=== PATIENT | female | born 1985 | race Caucasian/White ===

== ENCOUNTER 2017-04-12 09:45 | Inpatient (IN) | payer MEDICAID ==
[~2017-04-12] VITALS: Ht 157.5 cm; Wt 61.7 kg
[~2017-04-12 09:45] MED LIST: CLIN-79 PO; CYCL-1 PO; HYDR-569 PO; MESA400C3 PO; METO-292 PO; ONDA4TAB12 PO; ONDA8TAB9 PO
[2017-04-12 10:38] LABS: URINE HCG NEGATIVE (NEG)
[2017-04-12 10:50] LABS: BASOPHILS # (AUTO) 0.1 X10'3 (0-0.2); BASOPHILS % (AUTO) 2.1 % (0-1); EOSINOPHILS # (AUTO) 0.1 X10'3 (0-0.9); EOSINOPHILS % (AUTO) 1.2 % (0-6); HEMATOCRIT 42.8 % (35.0-45.0); LYMPHOCYTES # (AUTO) 2.1 X10'3 (1.1-4.8); LYMPHOCYTES % (AUTO) 34.2 % (21-51); MEAN CORPUSCULAR HEMOGLOBIN 30.3 PG (27.0-31.0); MEAN CORPUSCULAR HGB CONC 32.6 % (33.0-36.5); MEAN CORPUSCULAR VOLUME 92.9 FL (78-98); MEAN PLATELET VOLUME 9.5 FL (7.4-10.4); MONOCYTES # (AUTO) 0.4 X10'3 (0-0.9); MONOCYTES % (AUTO) 7.1 % (2-12); NEUTROPHILS # (AUTO) 3.5 X10'3 (1.8-7.7); NEUTROPHILS % (AUTO) 55.4 % (42-75); PLATELET COUNT 264 X10'3 (140-440); RED BLOOD COUNT 4.61 X10'6 (4.20-5.60); WHITE BLOOD COUNT 6.3 X10'3 (4.5-11.0)
[2017-04-12 10:57] LABS: CLARITY,URINE CLEAR (Clear); COLOR,URINE AMBER (Yellow); GLUCOSE, URINE NEGATIVE (Neg); KETONES,URINE NEGATIVE (Neg); LEUKOCYTE ESTERASE ,URINE NEGATIVE (Neg); NITRITES, URINE NEGATIVE (Neg); OCCULT BLOOD,URINE NEGATIVE (Neg); PROTEIN,URINE NEGATIVE (Neg); UROBILINOGEN,URINE 0.2 E.U/dL (0.2-1.0)
[2017-04-12 11:00] LABS: INR 1.2 INR; PROTHROMBIN TIME 12.2 SECONDS (9.0-12.0)
[2017-04-12 11:02] LABS: UA COLLECTION TYPE CLN CATCH MIDSTREAM
[2017-04-12 11:05] LABS: URINE AMPHETAMINE SCREEN POSITIVE (Neg); URINE BARBITUATE SCREEN NEGATIVE (Neg); URINE BENZODIAZEPINES SCREEN NEGATIVE (Neg); URINE CANNABINOID SCREEN POSITIVE (Neg); URINE COCAINE SCREEN NEGATIVE (Neg); URINE METHADONE SCREEN NEGATIVE (Neg); URINE OPIATE SCREEN NEGATIVE (Neg); URINE PHENCYCLIDINE SCREEN NEGATIVE (Neg)
[2017-04-12 11:09] LABS: ALANINE AMINOTRANSFERASE 3203 U/L (12-78); ALBUMIN 3.2 G/DL (3.4-5.0); ALBUMIN/GLOBULIN RATIO 0.8 (1.1-1.5); ALKALINE PHOSPHATASE 283 IU/L (46-116); ANION GAP 9 (8-16); BILIRUBIN,TOTAL 9.9 MG/DL (0.1-1.0); BLOOD UREA NITROGEN 10 MG/DL (7-18); BUN/CREATININE RATIO 12.7 (6.6-38.0); CALCIUM 8.3 MG/DL (8.5-10.1); CHLORIDE 105 MMOL/L (99-107); CREATININE 0.79 MG/DL (0.40-0.90); ETHANOL < 0.010 GM/DL (0.0-0.010); GLUCOSE 84 MG/DL (70-104); LIPASE 193 U/L (73-393); POTASSIUM 3.3 MMOL/L (3.5-5.1); SODIUM 139 MMOL/L (135-145); eGFR 86 ML/MIN
[2017-04-12 11:27] LABS: ASPARTATE AMINO TRANSFERASE 2476 U/L (10-37)
[2017-04-12] MEDS ORDERED: ketorolac trometh. 30mg/ml inj. IV ONE (11:55)
[2017-04-12 12:53] LABS: ACETAMINOPHEN < 2.0 UG/ML (10-30)
[2017-04-12] MEDS ORDERED: potassium Cl 40MEQ/NS 500ml 500 ML IV PRN ×2 (13:20)
[2017-04-12] MEDS ORDERED: magnesium 2GM in 50ml NS 50 ML IV PRN (13:20)
[2017-04-12] MEDS ORDERED: magnesium 4gm in 100ml NS 100 ML IV PRN (13:20)
[2017-04-12] MEDS ORDERED: ondansetron/PF 4mg/2ml inj IV PRN (13:20)
[2017-04-12] MEDS ORDERED: acetaminophen 325mg tablet PO PRN (13:20)
[2017-04-12] MEDS ORDERED: potassium Cl 20 mEq SR tablet PO PRN ×2 (13:20)
[2017-04-12] MEDS ORDERED: magnesium hydroxide 30ml (MOM) UD suspension PO PRN (13:20)
[2017-04-12] MEDS ORDERED: mag hydrox/Alum hydrox/simeth 30ml oral suspension PO PRN (13:20)
[2017-04-12] MEDS: normal saline 1000ml 1,000 ML IV SCH ×2 (15:21→23:53)
[2017-04-12] MEDS: oxyCODONE IR 5mg (immed. release) tablet PO PRN ×2 (16:01→23:51)
[2017-04-12 19:00] VITALS: BP 135/88
[2017-04-12] MEDS ORDERED: NO HOME MEDS (22:21)
[2017-04-13] VITALS: BP 114/72
[2017-04-13 06:23] LABS: BASOPHILS % (AUTO) 0.7 % (0-1); EOSINOPHILS # (AUTO) 0.2 X10'3 (0-0.9); EOSINOPHILS % (AUTO) 3.2 % (0-6); HEMATOCRIT 43.7 % (35.0-45.0); HEMOGLOBIN 14.4 g/dl (12.0-16.0); LYMPHOCYTES # (AUTO) 2.7 X10'3 (1.1-4.8); MEAN CORPUSCULAR HEMOGLOBIN 30.3 PG (27.0-31.0); MEAN CORPUSCULAR HGB CONC 32.9 % (33.0-36.5); MEAN CORPUSCULAR VOLUME 92.2 FL (78-98); MEAN PLATELET VOLUME 9.7 FL (7.4-10.4); MONOCYTES # (AUTO) 0.5 X10'3 (0-0.9); MONOCYTES % (AUTO) 7.6 % (2-12); NEUTROPHILS # (AUTO) 2.6 X10'3 (1.8-7.7); NEUTROPHILS % (AUTO) 43.5 % (42-75); PLATELET COUNT 251 X10'3 (140-440); RED BLOOD COUNT 4.74 X10'6 (4.20-5.60); RED CELL DISTRIBUTION WIDTH 16.8 % (11.5-14.5)
[2017-04-13 06:47] LABS: ALANINE AMINOTRANSFERASE 2770 U/L (12-78); ALBUMIN 2.9 G/DL (3.4-5.0); ALBUMIN/GLOBULIN RATIO 0.8 (1.1-1.5); ANION GAP 9 (8-16); BILIRUBIN,TOTAL 10.8 MG/DL (0.1-1.0); BLOOD UREA NITROGEN 6 MG/DL (7-18); BUN/CREATININE RATIO 7.7 (6.6-38.0); CALCIUM 8.5 MG/DL (8.5-10.1); CHLORIDE 106 MMOL/L (99-107); CREATININE 0.78 MG/DL (0.40-0.90); GLUCOSE 80 MG/DL (70-104); MAGNESIUM 1.6 MG/DL (1.5-2.4); POTASSIUM 3.4 MMOL/L (3.5-5.1); SODIUM 140 MMOL/L (135-145); TOTAL CARBON DIOXIDE 25.1 MMOL/L (24-32); TOTAL PROTEIN 6.5 G/DL (6.4-8.2); eGFR 87 ML/MIN
[2017-04-13 06:48] LABS: ALKALINE PHOSPHATASE 244 IU/L (46-116)
[2017-04-13 07:00] VITALS: BP 110/74
[2017-04-13 07:03] LABS: ASPARTATE AMINO TRANSFERASE 2011 U/L (10-37)
[2017-04-13] MEDS: K and/or MAG REPLACEMENT MC SCH (08:00)
[2017-04-13] MEDS: oxyCODONE IR 5mg (immed. release) tablet PO PRN (08:29)
[2017-04-13] MEDS: normal saline 1000ml 1,000 ML IV SCH ×2 (09:20→17:19)
[2017-04-13 12:26] VITALS: BP 119/72
[2017-04-13] MEDS ORDERED: LIDOcaine 1% 30ml vial 5 ML in potassium Cl 40MEQ/NS 500ml 500 ML IV PRN (14:45)
[2017-04-13 19:00] VITALS: BP 113/73
[2017-04-14] VITALS: BP 113/71
[2017-04-14] MEDS: oxyCODONE IR 5mg (immed. release) tablet PO PRN ×2 (01:05→09:01)
[2017-04-14 05:05] LABS: ALANINE AMINOTRANSFERASE 2201 U/L (12-78); ALBUMIN 2.6 G/DL (3.4-5.0); ALBUMIN/GLOBULIN RATIO 0.8 (1.1-1.5); ALKALINE PHOSPHATASE 213 IU/L (46-116); ANION GAP 9 (8-16); ASPARTATE AMINO TRANSFERASE 1641 U/L (10-37); BILIRUBIN,TOTAL 9.5 MG/DL (0.1-1.0); BLOOD UREA NITROGEN 4 MG/DL (7-18); BUN/CREATININE RATIO 6.2 (6.6-38.0); CALCIUM 8.3 MG/DL (8.5-10.1); CHLORIDE 105 MMOL/L (99-107); CREATININE 0.65 MG/DL (0.40-0.90); GLUCOSE 85 MG/DL (70-104); MAGNESIUM 1.7 MG/DL (1.5-2.4); POTASSIUM 3.7 MMOL/L (3.5-5.1); SODIUM 139 MMOL/L (135-145); TOTAL CARBON DIOXIDE 25.3 MMOL/L (24-32); TOTAL PROTEIN 5.9 G/DL (6.4-8.2); eGFR > 90 ML/MIN
[2017-04-14] MEDS: normal saline 1000ml 1,000 ML IV SCH ×2 (05:20→09:01)
[2017-04-14 05:33] LABS: BASOPHILS % (AUTO) 0.6 % (0-1); EOSINOPHILS # (AUTO) 0.2 X10'3 (0-0.9); EOSINOPHILS % (AUTO) 3.6 % (0-6); HEMATOCRIT 38.5 % (35.0-45.0); HEMOGLOBIN 12.6 g/dl (12.0-16.0); LYMPHOCYTES # (AUTO) 2.5 X10'3 (1.1-4.8); LYMPHOCYTES % (AUTO) 40.7 % (21-51); MEAN CORPUSCULAR HEMOGLOBIN 30.1 PG (27.0-31.0); MEAN CORPUSCULAR HGB CONC 32.8 % (33.0-36.5); MEAN CORPUSCULAR VOLUME 91.8 FL (78-98); MEAN PLATELET VOLUME 10.6 FL (7.4-10.4); MONOCYTES # (AUTO) 0.6 X10'3 (0-0.9); MONOCYTES % (AUTO) 9.3 % (2-12); NEUTROPHILS # (AUTO) 2.8 X10'3 (1.8-7.7); NEUTROPHILS % (AUTO) 45.8 % (42-75); PLATELET COUNT 249 X10'3 (140-440); RED CELL DISTRIBUTION WIDTH 17.1 % (11.5-14.5); WHITE BLOOD COUNT 6.1 X10'3 (4.5-11.0)
[2017-04-14 07:16] LABS: LARGE PLATELETS FEW; PLATELET ESTIMATE NORMAL
[2017-04-14 07:17] LABS: ANISOCYTOSIS 1+; HYPOCHROMASIA 1+; TARGET CELLS 1+
[2017-04-14 07:32] VITALS: BP 139/82
[2017-04-14 08:00] VITALS: BP 122/65
[2017-04-14] MEDS: K and/or MAG REPLACEMENT MC SCH (08:00)
[2017-04-14 09:36] LABS: HIV ANTIBODY 1&2 RAPID NON-REACTIVE (Neg)
[2017-04-14] MEDS ORDERED: OXYC-658 PO (11:09)
[2017-04-14] MEDS ORDERED: ONDA4TAB12 PO (11:09)
[2017-04-14 11:30] VITALS: BP 131/69
[2017-04-14 15:15] LABS: HBSAG SCREEN Negative (Negative); HEP A AB, IGM Negative (Negative); HEP B CORE AB, IGM Negative (Negative); HEPATITIS C ANTIBODY >11.0 s/co ratio (0.0-0.9)
== END 2017-04-14 12:52 | disposition home or self-care (01) | DRG 279 ==
LOC: ER 09:47 → ED HOLD 13:20 → EDBEDREQ 17:31 → SUR 3N 18:40
PROVIDERS: ADMIT Family Medicine; ATTEND Family Medicine
DX: K72.00 Acute and subacute hepatic failure without coma (principal); I10 Essential (primary) hypertension; F17.210 Nicotine dependence, cigarettes, uncomplicated; F15.90 Other stimulant use, unspecified, uncomplicated; F19.10 Other psychoactive substance abuse, uncomplicated; G89.29 Other chronic pain; M54.9 Dorsalgia, unspecified; F12.90 Cannabis use, unspecified, uncomplicated; Z88.6 Allergy status to analgesic agent; Z79.899 Other long term (current) drug therapy; Z79.01 Long term (current) use of anticoagulants; Z88.8 Allergy status to other drugs, medicaments and biological substances; Z79.82 Long term (current) use of aspirin; Z82.0 Family history of epilepsy and other diseases of the nervous system; Z85.41 Personal history of malignant neoplasm of cervix uteri; Z90.49 Acquired absence of other specified parts of digestive tract; Z90.710 Acquired absence of both cervix and uterus; Z56.0 Unemployment, unspecified
CPT/HCPCS: 36415; 76700; 80053; 80074; 80305; 80320; 80329; 81003; 81025; 83690; 83735; 85025; 85610; 86703; 87070; 96374; 99285; A6257; J1885; J2405; J3480; J3490; J7030

== ENCOUNTER 2017-05-25 00:12 | Emergency (ER) | payer MEDICAID ==
[~2017-05-25 00:12] MED LIST changes: -CLIN-79 PO; -CYCL-1 PO; -HYDR-569 PO; -MESA400C3 PO; -METO-292 PO; -ONDA8TAB9 PO; +OXYC-658 PO
== END 2017-05-25 00:33 | disposition left against medical advice (07) ==
LOC: ER 00:12
DX: R10.9 Unspecified abdominal pain (principal); Z53.21 Procedure and treatment not carried out due to patient leaving prior to being seen by health care provider

== ENCOUNTER 2017-08-16 01:36 | Emergency (ER) | payer MEDICAID ==
[~2017-08-16] VITALS: Ht 157.5 cm; Wt 49.0 kg
[2017-08-16 03:13] VITALS: BP 115/61
== END 2017-08-16 03:17 | disposition home or self-care (01) ==
LOC: ER 01:36
DX: I38 Endocarditis, valve unspecified (principal); I10 Essential (primary) hypertension; G89.29 Other chronic pain; Z90.49 Acquired absence of other specified parts of digestive tract; Z90.710 Acquired absence of both cervix and uterus; F12.10 Cannabis abuse, uncomplicated; F15.10 Other stimulant abuse, uncomplicated; Z56.0 Unemployment, unspecified; Z88.5 Allergy status to narcotic agent; Z88.8 Allergy status to other drugs, medicaments and biological substances; Z79.899 Other long term (current) drug therapy
CPT/HCPCS: 87070; 99284; A6449

== ENCOUNTER 2017-10-15 03:41 | Emergency (ER) | payer MEDICAID ==
[~2017-10-15] VITALS: Ht 157.5 cm; Wt 61.1 kg
[2017-10-15 03:45] VITALS: BP 136/83
== END 2017-10-15 04:23 | disposition left against medical advice (07) ==
LOC: ER 03:42
DX: Z11.3 Encounter for screening for infections with a predominantly sexual mode of transmission (principal); Z53.21 Procedure and treatment not carried out due to patient leaving prior to being seen by health care provider

== ENCOUNTER 2017-11-26 19:40 | Emergency (ER) | payer MEDICAID ==
[~2017-11-26] VITALS: Ht 160 cm; Wt 62.5 kg
[2017-11-26 19:50] VITALS: BP 124/79
[2017-11-26 20:19] LABS: URINE HCG NEGATIVE (NEG)
[2017-11-26 20:24] LABS: CLARITY,URINE CLOUDY (Clear); COLOR,URINE YELLOW (Yellow); GLUCOSE, URINE NEGATIVE (Neg); KETONES,URINE NEGATIVE (Neg); LEUKOCYTE ESTERASE ,URINE MODERATE (Neg); NITRITES, URINE NEGATIVE (Neg); OCCULT BLOOD,URINE MODERATE (Neg); PROTEIN,URINE TRACE mg/dl (Neg); UROBILINOGEN,URINE 0.2 E.U/dL (0.2-1.0)
[2017-11-26 20:25] LABS: UA COLLECTION TYPE CLN CATCH MIDSTREAM
[2017-11-26 20:32] LABS: BACTERIA,URINE 2+ /HPF (Neg); SQUAMOUS EPITHELIAL CELL,UR FEW /LPF (FEW); TRICHOMONAS,URINE MOD /HPF (NEGATIVE); WBC,URINE 20-30 /HPF (0-4)
[2017-11-26] MEDS ORDERED: azithromycin 250mg tablet PO ONE (20:35)
[2017-11-26] MEDS ORDERED: TETanus/Pertussis (Acell)/Diphther VAC/PF (Tdap-Adult) 0.5ml syringe IM ONE (20:50)
[2017-11-26] MEDS ORDERED: LIDOcaine 1.5% w/epinephrine 1:200,000 5ml ampul IJ ONE (20:50)
[2017-11-26] MEDS ORDERED: HYDROcodone/acetaminophen 10/325mg tab PO ONE (21:15)
[2017-11-26] MEDS ORDERED: SULF1TAB48 PO (21:16)
[2017-11-26] MEDS ORDERED: IBUP-1984 PO (21:16)
== END 2017-11-26 21:32 | disposition home or self-care (01) ==
LOC: ER 19:41
DX: N76.4 Abscess of vulva (principal); F19.10 Other psychoactive substance abuse, uncomplicated; F15.10 Other stimulant abuse, uncomplicated; F11.10 Opioid abuse, uncomplicated; I10 Essential (primary) hypertension; G89.29 Other chronic pain; M54.9 Dorsalgia, unspecified; F12.10 Cannabis abuse, uncomplicated; Z90.49 Acquired absence of other specified parts of digestive tract; Z20.2 Contact with and (suspected) exposure to infections with a predominantly sexual mode of transmission; Z90.710 Acquired absence of both cervix and uterus; Z88.6 Allergy status to analgesic agent; Z88.1 Allergy status to other antibiotic agents; Z88.8 Allergy status to other drugs, medicaments and biological substances
CPT/HCPCS: 36415; 56405; 81001; 81025; 87088; 87491; 87591; 99284; A6255; A6449; J3490; 90715

== ENCOUNTER 2018-04-26 13:07 | Emergency (ER) | payer MEDICAID ==
[~2018-04-26] VITALS: Ht 157.5 cm; Wt 59.0 kg
[2018-04-26 14:02] LABS: BASOPHILS % (AUTO) 0.6 % (0-1); EOSINOPHILS # (AUTO) 0.1 X10'3 (0-0.9); EOSINOPHILS % (AUTO) 1.5 % (0-6); HEMATOCRIT 37.7 % (35.0-45.0); HEMOGLOBIN 12.8 g/dl (12.0-16.0); LYMPHOCYTES # (AUTO) 3.2 X10'3 (1.1-4.8); LYMPHOCYTES % (AUTO) 45.2 % (21-51); MEAN CORPUSCULAR HEMOGLOBIN 29.9 PG (27.0-31.0); MEAN CORPUSCULAR HGB CONC 33.9 % (33.0-36.5); MEAN CORPUSCULAR VOLUME 88.4 FL (78-98); MEAN PLATELET VOLUME 8.5 FL (7.4-10.4); MONOCYTES # (AUTO) 0.4 X10'3 (0-0.9); MONOCYTES % (AUTO) 5.5 % (2-12); NEUTROPHILS # (AUTO) 3.3 X10'3 (1.8-7.7); NEUTROPHILS % (AUTO) 47.2 % (42-75); PLATELET COUNT 257 X10'3 (140-440); RED BLOOD COUNT 4.27 X10'6 (4.20-5.60); RED CELL DISTRIBUTION WIDTH 13.9 % (11.5-14.5)
[2018-04-26 14:14] LABS: ALANINE AMINOTRANSFERASE 18 U/L (12-78); ALBUMIN 3.6 G/DL (3.4-5.0); ALBUMIN/GLOBULIN RATIO 0.9 (1.1-1.5); ALKALINE PHOSPHATASE 114 IU/L (46-116); ANION GAP 9 (8-16); ASPARTATE AMINO TRANSFERASE 19 U/L (10-37); BILIRUBIN,TOTAL 0.2 MG/DL (0.1-1.0); BLOOD UREA NITROGEN 17 MG/DL (7-18); BUN/CREATININE RATIO 16.5 (6.6-38.0); CALCIUM 8.8 MG/DL (8.5-10.1); CHLORIDE 103 MMOL/L (99-107); CREATININE 1.03 MG/DL (0.40-0.90); GLUCOSE 107 MG/DL (70-104); SODIUM 139 MMOL/L (135-145); TOTAL CARBON DIOXIDE 26.7 MMOL/L (24-32); TOTAL PROTEIN 7.7 G/DL (6.4-8.2); eGFR 63 ML/MIN
[2018-04-26 14:21] LABS: PROTHROMBIN TIME 9.7 SECONDS (9.0-12.0)
[2018-04-26 15:27] LABS: ETHANOL < 0.010 GM/DL (0.0-0.010)
[2018-04-26 16:05] VITALS: BP 103/61
[2018-04-26 16:13] LABS: TROPONIN I < 0.04 NG/ML (0.0-0.05)
== END 2018-04-26 16:52 | disposition home or self-care (01) ==
LOC: ER 13:08
DX: R07.89 Other chest pain (principal); F19.10 Other psychoactive substance abuse, uncomplicated; R50.9 Fever, unspecified; I10 Essential (primary) hypertension; G89.29 Other chronic pain; F12.90 Cannabis use, unspecified, uncomplicated; F15.90 Other stimulant use, unspecified, uncomplicated; F11.90 Opioid use, unspecified, uncomplicated; F17.200 Nicotine dependence, unspecified, uncomplicated; Z90.49 Acquired absence of other specified parts of digestive tract; Z90.710 Acquired absence of both cervix and uterus; Z79.899 Other long term (current) drug therapy; Z56.0 Unemployment, unspecified
CPT/HCPCS: 36415; 80053; 80320; 84484; 85025; 85610; 93005; 99284

== ENCOUNTER 2018-08-06 12:18 | Emergency (ER) | payer MEDICAID ==
[~2018-08-06] VITALS: Ht 167.6 cm; Wt 59.0 kg
[2018-08-06] MEDS ORDERED: normal saline 1000ML IV soln IVB ONE (12:40)
[2018-08-06] MEDS ORDERED: ondansetron/PF 4mg/2ml inj IV ONE (12:40)
[2018-08-06 13:18] LABS: BASOPHILS # (AUTO) 0.1 X10'3 (0-0.2); BASOPHILS % (AUTO) 0.6 % (0-1); EOSINOPHILS % (AUTO) 0.2 % (0-6); HEMATOCRIT 40.1 % (35.0-45.0); HEMOGLOBIN 13.6 g/dl (12.0-16.0); LYMPHOCYTES # (AUTO) 3.3 X10'3 (1.1-4.8); LYMPHOCYTES % (AUTO) 34.8 % (21-51); MEAN CORPUSCULAR HEMOGLOBIN 30.1 PG (27.0-31.0); MEAN CORPUSCULAR VOLUME 88.7 FL (78-98); MEAN PLATELET VOLUME 8.3 FL (7.4-10.4); MONOCYTES # (AUTO) 0.9 X10'3 (0-0.9); MONOCYTES % (AUTO) 9.7 % (2-12); NEUTROPHILS # (AUTO) 5.1 X10'3 (1.8-7.7); NEUTROPHILS % (AUTO) 54.7 % (42-75); PLATELET COUNT 290 X10'3 (140-440); RED BLOOD COUNT 4.52 X10'6 (4.20-5.60); RED CELL DISTRIBUTION WIDTH 13.7 % (11.5-14.5); WHITE BLOOD COUNT 9.4 X10'3 (4.5-11.0)
[2018-08-06 13:40] LABS: ALANINE AMINOTRANSFERASE 29 U/L (12-78); ALBUMIN 4.2 G/DL (3.4-5.0); ALBUMIN/GLOBULIN RATIO 1.1 (1.1-1.5); ALKALINE PHOSPHATASE 101 IU/L (46-116); ANION GAP 10 (8-16); ASPARTATE AMINO TRANSFERASE 20 U/L (10-37); BILIRUBIN,TOTAL 0.5 MG/DL (0.1-1.0); BLOOD UREA NITROGEN 19 MG/DL (7-18); BUN/CREATININE RATIO 23.5 (6.6-38.0); CALCIUM 9.9 MG/DL (8.5-10.1); CHLORIDE 102 MMOL/L (99-107); CREATININE 0.81 MG/DL (0.40-0.90); GLUCOSE 92 MG/DL (70-104); POTASSIUM 3.8 MMOL/L (3.5-5.1); SODIUM 137 MMOL/L (135-145); TOTAL CARBON DIOXIDE 24.9 MMOL/L (24-32); TOTAL PROTEIN 8.1 G/DL (6.4-8.2); eGFR 83 ML/MIN
[2018-08-06 14:32] VITALS: BP 112/55
[2018-08-06 15:11] LABS: CLARITY,URINE SLIGHTLY CLOUDY (Clear); COLOR,URINE YELLOW (Yellow); GLUCOSE, URINE NEGATIVE (Neg); KETONES,URINE NEGATIVE (Neg); LEUKOCYTE ESTERASE ,URINE NEGATIVE (Neg); NITRITES, URINE NEGATIVE (Neg); OCCULT BLOOD,URINE TRACE-INTACT (Neg); PROTEIN,URINE NEGATIVE (Neg); UROBILINOGEN,URINE 0.2 E.U/dL (0.2-1.0)
[2018-08-06 15:16] LABS: UA COLLECTION TYPE STRAIGHT CATH
[2018-08-06 15:17] LABS: MUCUS STRANDS MODERATE /LPF (Neg); SQUAMOUS EPITHELIAL CELL,UR FEW /LPF (FEW)
[2018-08-06 15:18] LABS: BACTERIA,URINE 1+ /HPF (Neg); HYALINE CASTS 0-3 /LPF (NEGATIVE); WBC,URINE 0-4 /HPF (0-4)
== END 2018-08-06 14:36 | disposition home or self-care (01) ==
LOC: ER 12:19
DX: T50.7X1A Poisoning by analeptics and opioid receptor antagonists, accidental (unintentional), initial encounter (principal); R41.82 Altered mental status, unspecified; I10 Essential (primary) hypertension; G89.29 Other chronic pain; F17.210 Nicotine dependence, cigarettes, uncomplicated; F12.90 Cannabis use, unspecified, uncomplicated; F15.90 Other stimulant use, unspecified, uncomplicated; F11.90 Opioid use, unspecified, uncomplicated; Z56.0 Unemployment, unspecified; Z90.49 Acquired absence of other specified parts of digestive tract; Z90.710 Acquired absence of both cervix and uterus; Z88.1 Allergy status to other antibiotic agents; Z88.5 Allergy status to narcotic agent; Z88.8 Allergy status to other drugs, medicaments and biological substances; Z79.899 Other long term (current) drug therapy; Y92.89 Other specified places as the place of occurrence of the external cause
CPT/HCPCS: 36415; 80053; 81001; 85025; 93005; 96374; 99284; J2405; J7030

== ENCOUNTER 2018-11-14 17:33 | Emergency (ER) | payer MEDICAID, OTHER ==
[~2018-11-14] VITALS: Ht 157.5 cm; Wt 56.8 kg
[2018-11-14] MEDS ORDERED: ondansetron/PF 4mg/2ml inj IV ONE (18:40)
[2018-11-14] MEDS ORDERED: ketorolac trometh. 30mg/ml inj. IV ONE (18:40)
[2018-11-14] MEDS ORDERED: normal saline 1000ML IV soln IVB ONE (18:40)
[2018-11-14] MEDS ORDERED: IBUP-1986 PO (18:42)
[2018-11-14] MEDS ORDERED: ONDA4TAB6 PO (18:42)
[2018-11-14] MEDS ORDERED: diphenhydrAMINE 50 mg/ml inj IV ONE (18:55)
[2018-11-14 18:57] LABS: BASOPHILS # (AUTO) 0.1 X10'3 (0-0.2); BASOPHILS % (AUTO) 0.7 % (0-1); EOSINOPHILS # (AUTO) 0.1 X10'3 (0-0.9); EOSINOPHILS % (AUTO) 0.5 % (0-6); HEMATOCRIT 42.4 % (35.0-45.0); HEMOGLOBIN 14.6 g/dl (12.0-16.0); LYMPHOCYTES # (AUTO) 5.9 X10'3 (1.1-4.8); LYMPHOCYTES % (AUTO) 51.8 % (21-51); MEAN CORPUSCULAR HGB CONC 34.3 g/dL (33.0-36.5); MEAN CORPUSCULAR VOLUME 87.2 FL (78-98); MONOCYTES # (AUTO) 0.9 X10'3 (0-0.9); MONOCYTES % (AUTO) 7.6 % (2-12); NEUTROPHILS # (AUTO) 4.5 X10'3 (1.8-7.7); NEUTROPHILS % (AUTO) 39.4 % (42-75); PLATELET COUNT 380 X10'3 (140-440); RED BLOOD COUNT 4.86 X10'6 (4.20-5.60); RED CELL DISTRIBUTION WIDTH 13.2 % (11.5-14.5); WHITE BLOOD COUNT 11.4 X10'3 (4.5-11.0)
[2018-11-14 19:11] LABS: PARTIAL THROMBOPLASTIN TIME 28 SECONDS (22-32)
[2018-11-14 19:15] LABS: ALANINE AMINOTRANSFERASE 20 U/L (12-78); ALKALINE PHOSPHATASE 103 IU/L (46-116); ANION GAP 11 (8-16); ASPARTATE AMINO TRANSFERASE 13 U/L (10-37); BILIRUBIN,TOTAL 0.3 MG/DL (0.1-1.0); BLOOD UREA NITROGEN 19 MG/DL (7-18); BUN/CREATININE RATIO 20.7 (6.6-38.0); CALCIUM 9.2 MG/DL (8.5-10.1); CHLORIDE 105 MMOL/L (99-107); CREATININE 0.92 MG/DL (0.40-0.90); GLUCOSE 97 MG/DL (70-104); POTASSIUM 3.9 MMOL/L (3.5-5.1); SODIUM 137 MMOL/L (135-145); TOTAL CARBON DIOXIDE 20.9 MMOL/L (24-32); TOTAL PROTEIN 7.9 G/DL (6.4-8.2); eGFR 71 ML/MIN
[2018-11-14] MEDS ORDERED: loperamide 2mg capsule PO ONE (19:30)
[2018-11-14] MEDS ORDERED: LOPE-144 PO (19:34)
[2018-11-14 19:42] VITALS: BP 126/74
== END 2018-11-14 19:49 ==
LOC: ER 17:33
DX: R07.89 Other chest pain (principal); R11.2 Nausea with vomiting, unspecified; R19.7 Diarrhea, unspecified; I10 Essential (primary) hypertension; G89.29 Other chronic pain; F12.90 Cannabis use, unspecified, uncomplicated; F15.90 Other stimulant use, unspecified, uncomplicated; F11.90 Opioid use, unspecified, uncomplicated; Z90.49 Acquired absence of other specified parts of digestive tract; Z90.710 Acquired absence of both cervix and uterus; Z56.0 Unemployment, unspecified; Z88.1 Allergy status to other antibiotic agents; Z88.5 Allergy status to narcotic agent; Z88.8 Allergy status to other drugs, medicaments and biological substances; Z79.899 Other long term (current) drug therapy
CPT/HCPCS: 36415; 71045; 80053; 84484; 85025; 85610; 85730; 93005; 96361; 96374; 96375; 99284; J1200; J1885; J2405; J7030

== ENCOUNTER 2021-01-14 21:00 | Emergency (ER) | payer MEDICAID, OTHER ==
[~2021-01-14] VITALS: Ht 157.5 cm; Wt 65.9 kg
[~2021-01-14 21:00] MED LIST changes: +IBUP-1986 PO; +LOPE-144 PO; +ONDA4TAB6 PO
--- NOTE | 2021-01-15 05:44 | NUR ---
Patient was at [facility] approx 24 hrs ago. Printed Lab results in pt chart. Patient resting comfortably in room at this time.
[2021-01-15] MEDS ORDERED: TRAZ150T78 PO (08:00)
[2021-01-15] MEDS ORDERED: ALPR-624 PO (08:00)
[2021-01-15] MEDS ORDERED: BUSP10TA4 PO (08:00)
[2021-01-15] MEDS ORDERED: BUPR1FIL5 SL (08:00)
[2021-01-15] MEDS ORDERED: SERT100T PO (08:00)
[2021-01-15] MEDS ORDERED: TOP100T PO (08:00)
[2021-01-15] MEDS: ALPRAZolam 0.5mg tablet PO SCH ×2 (09:34→20:02)
[2021-01-15] MEDS: topiramate 100mg tablet PO SCH ×2 (09:35→20:02)
[2021-01-15] MEDS: busPIRone 5mg tablet PO SCH ×4 (09:35→20:02)
[2021-01-15] MEDS: sertraline 50mg tablet PO SCH (09:35)
[2021-01-15] MEDS: buprenorphine/naloxone 2-0.5mg sublingual tablet SL SCH ×3 (09:35→18:19)
--- NOTE | 2021-01-15 09:43 | NUR ---
patient states that liliana rubin can recieve any information that he request regarding her status
--- NOTE | 2021-01-15 11:45 | NUR ---
Patient from Main and laying in bed with at side. RN asked patient for a urine sample. Patient appears very anxious upon awakening. Continue to monitor.
--- NOTE | 2021-01-15 12:18 | NUR ---
Patient sleeping. No distress observed. Continue to monitor.
--- NOTE | 2021-01-15 12:20 | NUR ---
took all patient's belongings.
[2021-01-15 12:44] LABS: URINE AMPHETAMINE SCREEN NEGATIVE (Neg); URINE BARBITUATE SCREEN NEGATIVE (Neg); URINE BENZODIAZEPINES SCREEN POSITIVE (Neg); URINE CANNABINOID SCREEN POSITIVE (Neg); URINE COCAINE SCREEN NEGATIVE (Neg); URINE METHADONE SCREEN NEGATIVE (Neg); URINE OPIATE SCREEN NEGATIVE (Neg); URINE PHENCYCLIDINE SCREEN NEGATIVE (Neg)
--- NOTE | 2021-01-15 14:06 | NUR ---
Patient eating her lunch and appears to be falling asleep. RN asked patient if she wants to lay back in bed and patient states not right now. Continue to monitor.
--- NOTE | 2021-01-15 14:59 | NUR ---
Patient's at bedside. No distress observed. Continue to monitor.
--- NOTE | 2021-01-15 16:20 | NUR ---
[facility] calling for possible admission. Requesting CXR due to pt being a TB carrier. Xray with patient now. No distress observed. Continue to monitor.
[2021-01-15] MEDS ORDERED: normal saline 1000ML IV soln IVB ONE (18:20)
[2021-01-15 19:00] LABS: EOSINOPHILS # (AUTO) 0.1 X10'3 (0-0.9); HEMATOCRIT 35.7 % (35.0-45.0); LYMPHOCYTES # (AUTO) 3.7 X10'3 (1.1-4.8); MEAN CORPUSCULAR VOLUME 92.3 FL (78-98); MEAN PLATELET VOLUME 9.7 FL (7.4-10.4); MONOCYTES # (AUTO) 0.4 X10'3 (0-0.9); NEUTROPHILS # (AUTO) 1.6 X10'3 (1.8-7.7); RED CELL DISTRIBUTION WIDTH 13.8 % (11.5-14.5); WHITE BLOOD COUNT 5.8 X10'3 (4.5-11.0)
[2021-01-15 19:04] LABS: BASOPHILS % (AUTO) 0.4 % (0-1); HEMOGLOBIN 11.9 g/dl (12.0-16.0); LYMPHOCYTES % (AUTO) 64.2 % (21-51); MEAN CORPUSCULAR HEMOGLOBIN 30.7 PG (27.0-31.0); MEAN CORPUSCULAR HGB CONC 33.3 g/dL (33.0-36.5); MONOCYTES % (AUTO) 6.5 % (2-12); NEUTROPHILS % (AUTO) 27.9 % (42-75); PLATELET COUNT 238 X10'3 (140-440); RED BLOOD COUNT 3.86 X10'6 (4.20-5.60)
--- NOTE | 2021-01-15 19:17 | NUR ---
[facility]
--- NOTE | 2021-01-15 19:18 | NUR ---
The patient sat up and ate her dinner and presents less somulent as she was in the morning. When asked why she left [facility] ER she stated that "they kicked me out because they're assholes" When asked how her currentl mood was she replied, "angry, hurt, and broken" She stated that she is angry at herself. She stated that she remains suicidal with a plan to cut her wrists and she has many superficial cuts to both innner arms. She is irritable and answers questions rudely. She reports voices and when asked what they say she stated, "That I'm not good enough" "I should have just fucking off'd myself a long time ago"
[2021-01-15 19:19] LABS: ALANINE AMINOTRANSFERASE 27 U/L (12-78); ALBUMIN 3.5 G/DL (3.4-5.0); ALBUMIN/GLOBULIN RATIO 1.1 (1.1-1.5); ALKALINE PHOSPHATASE 71 IU/L (46-116); ANION GAP 9 (8-16); ASPARTATE AMINO TRANSFERASE 19 U/L (10-37); BILIRUBIN,TOTAL 0.2 MG/DL (0.1-1.0); BLOOD UREA NITROGEN 14 MG/DL (7-18); BUN/CREATININE RATIO 13.6 (6.6-38.0); CALCIUM 8.9 MG/DL (8.5-10.1); CHLORIDE 109 MMOL/L (99-107); CREATININE 1.03 MG/DL (0.40-0.90); GLUCOSE 94 MG/DL (70-104); POTASSIUM 3.3 MMOL/L (3.5-5.1); SODIUM 144 MMOL/L (135-145); TOTAL CARBON DIOXIDE 25.8 MMOL/L (24-32); TOTAL PROTEIN 6.8 G/DL (6.4-8.2); eGFR 62 ML/MIN
[2021-01-15] MEDS ORDERED: potassium Cl 20 mEq SR tablet PO ONE (19:30)
--- NOTE | 2021-01-15 20:31 | NUR ---
The patient is resting on he bed. HR 50 and BP 100/71
--- NOTE | 2021-01-15 20:58 | NUR ---
HR 52 and BP 112/58
[2021-01-15] MEDS ORDERED: traZODone 150mg tablet PO SCH (21:00)
[2021-01-15 22:02] LABS: PLATELET ESTIMATE NORMAL; TOTAL CELLS COUNTED 100
--- NOTE | 2021-01-15 22:54 | NUR ---
The patient appears to be sleeping
--- NOTE | 2021-01-16 01:59 | NUR ---
The patient appears to be sleeping
--- NOTE | 2021-01-16 04:16 | NUR ---
The patient appears to be sleeping
--- NOTE | 2021-01-16 06:25 | NUR ---
Patient given Buspar last night without any problems. Patient also given yesterday morning with same. Continue to monitor.
--- NOTE | 2021-01-16 06:55 | NUR ---
Patient sleeping supine. Patient just adjusted herself. No distress observed. Continue to monitor.
[2021-01-16] MEDS: busPIRone 5mg tablet PO SCH ×3 (08:00→13:00)
--- NOTE | 2021-01-16 08:25 | NUR ---
Patient asking for her medications. No distress observed. Continue to monitor.
[2021-01-16] MEDS: ALPRAZolam 0.5mg tablet PO SCH (08:29)
[2021-01-16] MEDS: sertraline 50mg tablet PO SCH (08:29)
[2021-01-16] MEDS: topiramate 100mg tablet PO SCH (08:29)
[2021-01-16] MEDS: buprenorphine/naloxone 2-0.5mg sublingual tablet SL SCH ×2 (08:34→12:18)
--- NOTE | 2021-01-16 08:35 | NUR ---
Patient gave the patient her medications. Patient appears more awake and alert
--- NOTE | 2021-01-16 09:03 | NUR ---
RN gave patient medication and patient said she couldn't take Buspar due to Hives. RN explained to patient that she got it twice yesterday. She has a right to refuse medication but there is no apparent allergy to Buspar. Continue to monitor.
--- NOTE | 2021-01-16 09:10 | NUR ---
Patient is awake and alert. Much better than she was last night. Patient states having suicidal ideation off and on and still is very depressed. Patient just got out of [facility] and is homeless. Patient's Fiance is housed in sober living. Patient has HX of endocarditis and has had low BP and low HR for a long time. EGK done last night with HR of 42, shows "sinus bradycardia, other abraham normal". Patient was very sleepy yesterday and dizzy. Patient's night time Suboxone was held. Patient was upset but did not awaken and request it. Patient was given her Suboxone this morning. No distress observed. Continue to monitor.
--- NOTE | 2021-01-16 10:58 | NUR ---
Patient's fiance at bedside. No distress observed. Continue to monitor.
--- NOTE | 2021-01-16 12:05 | NUR ---
Patient's fiance at bedside. No distress observed. Patient to be going to [facility] and there was a question of patient having 1 months worth of Suboxone. Patient stated she had none but patient's fiance took all her belongings. He has them in his car and foung the bottle. Patient has 26 films of 4 mg/1 mg. RN called and spoke with ENIO Parker at [facility]. She got the okay to accept patient with 8.5 days worth. RN to give patient the 1300 dose so patient will have one more dose at facility. RN called and advised RN that we gave 1300 dose and reiterated the information about her endocarditis, low bp and low HR. Patient is medically cleared.
[2021-01-16 12:07] VITALS: BP 88/55
--- NOTE | 2021-01-16 12:50 | NUR ---
Patient does not have clothes without strings. Patient upset and gave permission to cut the strings off her hoodie/sweatshirt. Patient given shorts by [facility] with draw strings cut off. Patient angry and cussing. Aging Room Operator awaiting patient for transport to [facility]. Patient angry at RN for saying we have to cut draw strings. Continue to monitor.
== END 2021-01-16 12:52 ==
LOC: ER 21:01
DX: R45.851 Suicidal ideations (principal); Z20.822 Contact with and (suspected) exposure to COVID-19; F41.9 Anxiety disorder, unspecified; I10 Essential (primary) hypertension; G89.29 Other chronic pain; F12.90 Cannabis use, unspecified, uncomplicated; F15.90 Other stimulant use, unspecified, uncomplicated; F11.90 Opioid use, unspecified, uncomplicated; Z85.9 Personal history of malignant neoplasm, unspecified; Z90.49 Acquired absence of other specified parts of digestive tract; Z90.710 Acquired absence of both cervix and uterus; Z56.0 Unemployment, unspecified; Z88.1 Allergy status to other antibiotic agents; Z88.5 Allergy status to narcotic agent; Z88.8 Allergy status to other drugs, medicaments and biological substances; Z88.6 Allergy status to analgesic agent; Z79.899 Other long term (current) drug therapy
CPT/HCPCS: 36415; 80053; 80305; 85007; 85025; 87635; 93005; 99285; C9803

== ENCOUNTER 2024-12-30 16:15 | Emergency (ER) | payer MEDICAID ==
[~2024-12-30] VITALS: Ht 157.5 cm; Wt 61.4 kg
[~2024-12-30 16:15] MED LIST changes: +ALPR-624 PO; +BUPR1FIL5 SL; +BUSP10TA4 PO; -IBUP-1986 PO; -LOPE-144 PO; -ONDA4TAB12 PO; -ONDA4TAB6 PO; -OXYC-658 PO; +SERT100T PO; +TOP100T PO; +TRAZ150T78 PO
[2024-12-30 16:28] VITALS: TEMP 97.9
[2024-12-30 17:23] LABS: MEAN PLATELET VOLUME 9.3 FL (7.4-10.4); RED CELL DISTRIBUTION WIDTH 13.3 % (11.5-14.5)
[2024-12-30 17:28] VITALS: BP 143/78; PULSE 66; RESP 18; O2SAT 100
[2024-12-30 17:43] LABS: CREATININE 0.90 MG/DL (0.40-0.90); TOTAL CARBON DIOXIDE 26.8 MMOL/L (24-32); eCRCL 68 ML/MIN; eGFR 70 ML/MIN
[2024-12-30] MEDS ORDERED: DICY20TA17 PO (18:13)
[2024-12-30] MEDS ORDERED: METR375C6 PO (18:13)
--- NOTE | 2024-12-30 18:14 | Physician Documentation ---
History of Present Illness ~ Chief Complaint: Abdominal Pain Stated Complaint: UPPER QUADRANT PAIN Time Seen by MD: 16:53 OK to notify your PCP?: Yes Primary Medical Doctor: MARIMAR SMITH Mode of Arrival: EMS, Ambulatory HPI 39-year-old female patient with a history of hepatitis C and past history of drug usage who has been sober for four years was brought to the emergency room by ambulance from the [facility] because the provider there thi nks she has jaundice. Patient has gallbladder surgery in 2010. She has a history of polycythemia, ankylosing spondylolysis and later also mentioned about cavity in her upper tooth left side. She has no new acute complaints. The patient is ambulatory as well. Medication Reconciliation Allergies: Coded Allergies: cephalexin (Verified Allergy, Intermediate, Hives, 12/30/24) codeine (Unverified Allergy, Unknown, hives, 12/30/24) cyclobenzaprine (Unverified Allergy, Unknown, seizure, 12/30/24) hydroxyzine (Verified Allergy, Unknown, 10/18/22) ketorolac (Verified Allergy, Unknown, 12/30/24) nitrofurantoin (Unverified Allergy, Unknown, hives, 12/30/24) aripiprazole (Unverified Adverse Reaction, Mild, seizures, 08/16/17) gabapentin (Unverified Adverse Reaction, Mild, seizures, 08/16/17) pregabalin (Unverified Adverse Reaction, Mild, seizures, 05/16/15) quetiapine (Unverified Adverse Reaction, Unknown, seizures, 05/16/15) risperidone (Unverified Adverse Reaction, Unknown, seizures, 05/16/15) tramadol (Unverified Adverse Reaction, Unknown, seizures, 05/16/15) Scheduled Alprazolam* (Xanax*), 1 TAB PO BID, (Reported) Buprenorphine Hcl/Naloxone Hcl (Suboxone 4 Mg-1 Mg Sl Film), 1 STRIP SL TID, (Reported) Buspirone HCl (Buspirone HCl), 1 TAB PO TID, (Reported) Metronidazole (Metronidazole), 1 CAP PO Q12H Sertraline Hcl (Zoloft), 2 TAB PO DAILY, (Reported) Topiramate (Topamax), 1 TAB PO BID, (Reported) Trazodone Hcl (Trazodone Hcl), 1 TAB PO HS, (Reported) Scheduled PRN Dicyclomine HCl (Dicyclomine HCl), 1 TAB PO Q6H PRN for abdominal cramps Past Medical History Past Medical History: Endocarditis, Hypertension, *GI/HEPATOBILIARY*, Chronic Back Pain, *CANCER* Past Surgical History: cholecystectomy, hysterectomy Other Past Surgical History: Diagnostic laparoscopy Patient History: Drug abuse FATHER FH: epilepsy Paternal grandfather FH: heart disease maternal grandfather FH: heart disease maternal grandfather FH: rheumatoid arthritis MOTHER Smoking Status: Current every day smoker Alcohol Use: None Drug Use: marijuana, methamphetamine, heroin Lives with: Family Lives In: Home Occupation: unemployed Review of Systems ROS As stated above in the HPI, otherwise all systems are reviewed and negative. Physical Exam Vital Signs: Temperature: 97.9, Source: Temporal, Heart Rate: 66, Respiratory Rate: 18, BP: 143/78, Pulse Oximetry: 100, Weight: 61.360 Physical Exam Reviewed vital signs and they are well within normal range. Const: Not in any distress Head: Atraumatic Eyes: Normal Conjunctiva, no jaundice no pallor ENT: Normal External Ears, Nose and Mouth. Moist mucous membranes Neck: Full range of motion. No meningismus Resp: Clear to auscultation bilaterally. Normal work of breathing Cardio: Regular rate and rhythm, no murmurs. Skin well perfused Abd: Soft, non-tender, non-distended. Normal bowel sounds. No rebound or guarding Skin: No petechiae or rashes. Warm and dry Back: No midline or flank tenderness Ext: No cyanosis, or edema Neuro: Awake and alert Psych: Normal Mood and Affect Progress Results/Orders Results/Orders Orders - ALESSANDRA MCCARTHY MD Urinalysis, Cult If Indicated (12/30/24 16:32) Hcg, Ur Ql (12/30/24 16:32) Drug Screen, Urine (12/30/24 17:59) Completed Orders - ALESSANDRA MCCARTHY MD Cbc/Diff (12/30/24 16:32) Amylase (12/30/24 16:32) Lipase (12/30/24 16:32) CMP (12/30/24 16:32) Vital Signs 12/30/24 12/30/24 16:28 17:28 Temp 97.9 Pulse 70 66 Resp 18 18 B/P (MAP) 108/73 143/78 (99) Pulse Ox 98 100 Laboratory Tests Test 12/30/24 16:57 White Blood Count 6.1 Red Blood Count 4.05 L Hemoglobin 12.3 Hematocrit 36.6 Mean Corpuscular Volume 90.6 Mean Corpuscular Hemoglobin 30.5 Mean Corpuscular Hemoglobin Concent 33.6 Red Cell Distribution Width 13.3 Platelet Count 230 Mean Platelet Volume 9.3 Neutrophils (%) (Auto) 53.5 Lymphocytes (%) (Auto) 39.3 Monocytes (%) (Auto) 5.3 Eosinophils (%) (Auto) 0.9 Basophils (%) (Auto) 1.0 Neutrophils # (Auto) 3.3 Lymphocytes # (Auto) 2.4 Monocytes # (Auto) 0.3 Eosinophils # (Auto) 0.1 Basophils # (Auto) 0.1 CBC Comment Sodium Level 141 Potassium Level 3.7 Chloride Level 105 Carbon Dioxide Level 26.8 Anion Gap 9 Blood Urea Nitrogen 16 Creatinine 0.90 Estimated GFR/1.73 m2 70 BUN/Creatinine Ratio 17.8 Glucose Level 98 Calcium Level 9.0 Total Bilirubin 0.2 Aspartate Amino Transf (AST/SGOT) 10 Alanine Aminotransferase (ALT/SGPT) 9 L Alkaline Phosphatase 71 Total Protein 7.2 Albumin 3.8 Globulin 3.4 Albumin/Globulin Ratio 1.1 Amylase Level 18 L Lipase 19 Chemistry Comments Medical Decision Making Findings ER Course/Med. Decision Making REVIEW of RECORD(S): Previous medical records here and/or external medical rec ords, such as that provided directly by the patient, by EMS and/or outside medical facilities, if available, were reviewed. COMORBIDITIES hepatitis-C MDM During the physical examination, the findings suggestive of acute life- threatening condition such as JVD, tracheal deviation, acidotic breathing, noisy stridorous breath sounds, pulses paradoxus, muffled heart sounds, unequal breath sounds, abdominal rigidity and rebound tenderness, focal neurological deficits, cool clammy skin, severe hypotension, severe tachycardia or bradycardia are absent. Patient presenting for jaundice. Vital signs reviewed. Patient is hemodynamically stable and does not meet SIRS criteria. Patient appears nontoxic on exam. Clinically there is no evidence of jaundice. Skeletal is clear. CMP shows normal liver function tests and total bili is 0.2 The rest of the blood tests are also normal. TREATMENT/DISPOSITION: The patient's presentation is most consistent with MSE and chronic dental infection Prior to discharge I independently reviewed the patients past medical history, clinical risk factors, comorbidities, and social determinants of health and diagnostic studies. The patient appears to be a safe discharge home with close outpatient PCP follow-up I had extensive discussion with patient regarding management, disposition and follow up. Potential symptom etiology was discussed, and shared decision making occurred. They will return immediately if symptoms worsen, do not improve, or they have any further concerns. Prior to discharge all questions were addressed. The patient is aware that the purpose of this visit was to screen for an acute medical emergency requiring emergent stabilization. Chronic and occult conditions, including malignancies, have not been ruled out. If patient is unable to arrange follow-up as stated in the discharge instructions and further discussed with the patient directly, or their symptoms worsen/become more concerning, they are to return to the ER for reassessment immediately. Prior to leaving the department, the patient has a plan for discharge, has decision making capacity, and acknowledges an understanding of the verbal and written discharge instructions. SOCIAL DETERMINANTS: Patient demonstrates no obvious challenges to following up as an outpatient although did consider whether patient had any barriers to access care including homelessness, Food insecurity, Mental health, Substance abuse, Disabilities, Limited access to medical care, Difficulty finding transport, Insurance issues, Refusal of care or testing due to cost concerns. MEDICAL SCREENING: I have discussed with the patient the non-definitive nature of the emergency screening exam, diagnosis and the possibility of a variety of conditions which may present in atypically benign fashion and stressed the importance of close follow-up for definitive diagnosis and treatment. We discussed signs and symptoms that should be watched for which might indicate a more serious or new condition that would benefit from emergency reevaluation and the patient has verbalized understanding to this and my other detailed discharge instructions and promises compliance. I have referred him back to his primary physician of course for a more detailed evaluation and more definitive diagnoses. DISCLAIMER: Inadvertent spelling and grammatical errors are likely due to EMR/dictation software use and do not reflect on the overall quality of patient care. Note that the electronic time recorded on this note does not necessarily reflect the actual time of the patient encounter. Departure Disposition: HOME / SELF CARE / HOMELESS Impression: Primary Impression: Pain, dental Additional Impression: Encounter for medical screening examination Condition: Stable Additional Instructions: Thank you for coming to our Emergency Department today. Please ask your nurse or provider if you have questions about your care today and do not leave until all your questions have been answered. Please use any medications given as directed and follow-up with your doctor (or the doctor you were referred to) in the next 1-3 days. Your primary care doctor can help to coordinate outpatient specialty care and provide authorization for specialty referral as needed. If you do not have a primary care doctor you may follow up at a [facility]. You may also use motrin and tylenol as needed for fever and/or pain unless instructed otherwise by your provider or nurse. Indications for more urgent follow-up have been discussed, but you may return to the Emergency Department at ANY time for any worrisome or worsening symptoms. [facility] Facilities: [facility] Facilities: [facility]: [facility] [place] Address:[address] [place] [address] [facility]: [place] Address:[address] [place] [id number] [facility]: [facility] Address:[address] [place] [address] [facility] [place] Address:[address] [place] [address] Registration Billing Pharmacy Referrals [facility] Address:[address] [place] [address] Referrals: NO PRIMARY CARE PROVIDER (PCP) Prescriptions Dicyclomine HCl (Dicyclomine HCl) 20 Mg Tablet 1 TAB PO Q6H PRN for abdominal cramps, #30 TAB 0 Refills Prov: ALESSANDRA MCCARTHY MD 12/30/24 Metronidazole (Metronidazole) 375 Mg Capsule 1 CAP PO Q12H for 7 Days, #14 CAP 0 Refills Prov: ALESSANDRA MCCARTHY MD 12/30/24 Signature Scribe Signature: None Attestation: My dictation ALESSANDRA MCCARTHY MD Dec 30, 2024 18:14
== END 2024-12-30 18:15 | disposition left against medical advice (07) ==
LOC: ER 16:16
DX: Z00.00 Encounter for general adult medical examination without abnormal findings (principal); K08.89 Other specified disorders of teeth and supporting structures; G89.29 Other chronic pain; I10 Essential (primary) hypertension; F17.200 Nicotine dependence, unspecified, uncomplicated; F19.10 Other psychoactive substance abuse, uncomplicated; F12.90 Cannabis use, unspecified, uncomplicated; Z86.19 Personal history of other infectious and parasitic diseases; Z88.1 Allergy status to other antibiotic agents; Z88.5 Allergy status to narcotic agent; Z90.49 Acquired absence of other specified parts of digestive tract; Z90.710 Acquired absence of both cervix and uterus; Z88.8 Allergy status to other drugs, medicaments and biological substances; Z79.899 Other long term (current) drug therapy; Z56.0 Unemployment, unspecified
CPT/HCPCS: 36415; 80053; 82150; 83690; 85025; 99283

== ENCOUNTER 2025-02-07 11:48 | Emergency (ER) | payer MEDICAID ==
[~2025-02-07] VITALS: Ht 154.9 cm; Wt 61.0 kg
[~2025-02-07 11:48] MED LIST changes: +DICY20TA17 PO; +METR375C6 PO
[2025-02-07 11:58] VITALS: TEMP 97.4
--- NOTE | 2025-02-07 12:15 | Physician Documentation ---
History of Present Illness ~ Chief Complaint: Seizure Stated Complaint: SEIZURE Time Seen by MD: 11:53 OK to notify your PCP?: Yes Primary Medical Doctor: MARIMAR MEDICAL Source: patient Mode of Arrival: POV Exam Limitations: no limitations HPI 39-year-old female who is here due to a seizure per EMS report. Patient does have a history of seizure disorder it is unclear what type of seizure she had this morning. Patient was not postictal upon EMS arrival nor was there any evidence of trauma to tongue or loss of bowel or bladder. Patient states that she relapsed on heroin which she did this morning she states she did IV heroin upon waking up this morning she can not recall what time that was. She not recall the last time she took her medication that she is supposed to take for her seizure disorder nor can she recall the name of the medication. Patient reports a headache. Witness did state that she hit her head when she had her seizure. Patient denies any other pain when he neck pain, back pain, cp, sob. Medication Reconciliation Allergies: Coded Allergies: cephalexin (Verified Allergy, Intermediate, Hives, 12/30/24) codeine (Unverified Allergy, Unknown, hives, 12/30/24) cyclobenzaprine (Unverified Allergy, Unknown, seizure, 12/30/24) hydroxyzine (Verified Allergy, Unknown, 10/18/22) ketorolac (Verified Allergy, Unknown, 12/30/24) nitrofurantoin (Unverified Allergy, Unknown, hives, 12/30/24) aripiprazole (Unverified Adverse Reaction, Mild, seizures, 08/16/17) gabapentin (Unverified Adverse Reaction, Mild, seizures, 08/16/17) pregabalin (Unverified Adverse Reaction, Mild, seizures, 05/16/15) quetiapine (Unverified Adverse Reaction, Unknown, seizures, 05/16/15) risperidone (Unverified Adverse Reaction, Unknown, seizures, 05/16/15) tramadol (Unverified Adverse Reaction, Unknown, seizures, 05/16/15) Scheduled Alprazolam* (Xanax*), 1 TAB PO BID, (Reported) Buprenorphine Hcl/Naloxone Hcl (Suboxone 4 Mg-1 Mg Sl Film), 1 STRIP SL TID, (Reported) Buspirone HCl (Buspirone HCl), 1 TAB PO TID, (Reported) Metronidazole (Metronidazole), 1 CAP PO Q12H Sertraline Hcl (Zoloft), 2 TAB PO DAILY, (Reported) Topiramate (Topamax), 1 TAB PO BID, (Reported) Trazodone Hcl (Trazodone Hcl), 1 TAB PO HS, (Reported) Scheduled PRN Dicyclomine HCl (Dicyclomine HCl), 1 TAB PO Q6H PRN for abdominal cramps Past Medical History Past Medical History: Endocarditis, Hypertension, *GI/HEPATOBILIARY*, Chronic Back Pain, *CANCER* Past Surgical History: cholecystectomy, hysterectomy Other Past Surgical History: Diagnostic laparoscopy Patient History: Drug abuse FATHER FH: epilepsy Paternal grandfather FH: heart disease maternal grandfather FH: heart disease maternal grandfather FH: rheumatoid arthritis MOTHER Alcohol Use: None Drug Use: marijuana, methamphetamine, heroin Lives with: Family Lives In: Home Occupation: unemployed Review of Systems All Other Systems at this time: Reviewed and Negative Physical Exam Vital Signs: Temperature: 97.4, Source: Oral, Heart Rate: 97, Respiratory Rate: 18, BP: 168/100, Pulse Oximetry: 97, Weight: 61.000 Oxygen Flow Rate: 0 Physical Exam GENERAL: Alert, no acute distress. SUPERFICIAL ABRASION TO FRONTAL SCALP AT HAIRLINE MEASURING ABOUT 2 CM IN WIDTH, CIRCULAR, NO ACTIVE BLEEDING. NO SWELLING. HEENT: NCAT, EOMI, PERRL, normal oropharynx, moist oral mucosa. NO ORAL TRAUMA. NECK: Supple, trachea midline. CARDIAC: Regular rate and rhythm, no murmurs, rubs, or gallops. Equal distal pulses. No lower extremity edema, cap refill less than 2 seconds. RESPIRATORY: Equal breath sounds, clear to auscultation bilaterally, no respiratory distress. GASTROINTESTINAL: Non distended, soft, nontender, No guarding or rebound. MUSCULOSKELETAL: Normal range of motion, nontender, no swelling. Normal gait. NEUROLOGICAL: Awake, alert, and oriented x 3. SKIN: Warm/dry, no pallor, no rash. PSYCH: Alert and appropriate. Affect congruent with mood. Speech is clear. Good eye contact. Procedures Procedures CT CT HEAD INDICATION: fall hit head, used heroin this morning EXAM DATE: 02/07/2025 12:36 PM COMPARISON: None RADIATION DOSE: CTDIvol: 64 mGy, DLP: 1123 mGy*cm PROCEDURE: CT scans of the head were obtained from the vertex to the skull base. Sagittal and coronal reconstructions were provided. All CT scans at this medical facility are performed using dose modulation tech niques as appropriate to a performed exam including the following: Automated exposure control was utilized; adjustment of the MA and/or KV according to patient size; and use of iterative reconstruction technique. FINDINGS: There is sulcal and ventricular prominence. The brainshows normal morphology and nelson-white matter differentiation, without intracranial hemorrhage, extra-axial fluid collection, mass effect or acute large vessel infarct. The ventricles are normal in size. The basal cisterns are patent. The skull and visible facial bones are intact. The paranasal sinuses, mastoid air cells and middle ear cavities are well-aerated. The soft tissues of the scalp are unremarkable. IMPRESSION: No acute intracranial abnormality. Progress Results/Orders Reviewed/noted all lab results: Yes Results/Orders Orders - YOUSUF VALENTIN T PA Ct Head (02/07/25 12:02) Completed Orders - YOUSUF VALENTIN PA Ct Head (02/07/25 12:02) Cbc/Diff (02/07/25 12:02) BMP (02/07/25 12:02) Vital Signs 02/07/25 02/07/25 02/07/25 11:58 12:21 13:11 Temp 97.4 Pulse 97 84 Resp 18 17 14 B/P (MAP) 168/100 118/70 (86) Pulse Ox 97 97 O2 Flow Rate 0 0 Laboratory Tests Test 02/07/25 12:28 White Blood Count 9.2 Red Blood Count 3.97 L Hemoglobin 12.2 Hematocrit 36.3 Mean Corpuscular Volume 91.4 Mean Corpuscular Hemoglobin 30.8 Mean Corpuscular Hemoglobin Concent 33.7 Red Cell Distribution Width 14.2 Platelet Count 310 Mean Platelet Volume 8.7 Neutrophils (%) (Auto) 68.5 Lymphocytes (%) (Auto) 24.0 Monocytes (%) (Auto) 6.1 Eosinophils (%) (Auto) 0.6 Basophils (%) (Auto) 0.8 Neutrophils # (Auto) 6.3 Lymphocytes # (Auto) 2.2 Monocytes # (Auto) 0.6 Eosinophils # (Auto) 0.1 Basophils # (Auto) 0.1 CBC Comment Sodium Level 136 Potassium Level 3.2 L Chloride Level 105 Carbon Dioxide Level 20.7 L Anion Gap 10 Blood Urea Nitrogen 8 Creatinine 0.95 H Estimated GFR/1.73 m2 66 BUN/Creatinine Ratio 8.4 L Glucose Level 107 H Calcium Level 8.3 L Albumin 4.2 Chemistry Comments Medical Decision Making Additional information obtaine: N/A Findings n/a Differential Dx:Considerations: Include: Hyperventilation, Psychogenic seizure, Due to alcohol withdrawl, Anticonvulsant withdrawl, Due to closed head injury, Due to CVA/TIA, Due to drug ingestion, Due to eclampsia, Due to hypocalcemia, Due to hypoglycemia, Due to hyponatremia, Due to hypoxemia, Idiopathic, Due to mass lesion, Due to meningitis, Syncope, Encephalopathy, Epilepsy-break through, Epilepsy-status, Other Additional Comment PATIENT WAS HERE FOR A FEW HOURS AND OBSERVED AND DID NOT HAVE ANY SEIZURE DURING OUR OBSERVATION. WE DID NOT GIVE HER A DOSAGE OF ATIVAN OR ANY LOADING SEIZURE MEDICATION DUE TO HER FENTANYL USE PRIOR TO ARRIVAL AND QUESTIONABLE SEIZURE. Departure Time of Disposition: 13:28 Disposition: 01 HOME / SELF CARE / HOMELESS Impression: Primary Impression: Seizure disorder Additional Impressions: Heroin abuse Nonadherence to medication Condition: Stable Additional Instructions: f/u with pcp i recommend rehab for your heroin abuse and/or getting on suboxone Referrals: NO PRIMARY CARE PROVIDER (PCP) Education Educated: Patient Educated regarding: diagnosis, treatment, need for follow up Signature Scribe Signature: x Attestation: YOUSUF Stone Feb 07, 2025 12:15
[2025-02-07 12:44] LABS: MEAN PLATELET VOLUME 8.7 FL (7.4-10.4); RED CELL DISTRIBUTION WIDTH 14.2 % (11.5-14.5)
[2025-02-07 12:53] LABS: CREATININE 0.95 MG/DL (0.40-0.90); TOTAL CARBON DIOXIDE 20.7 MMOL/L (24-32); eCRCL 61 ML/MIN; eGFR 66 ML/MIN
--- NOTE | 2025-02-07 13:06 | RADIOLOGY REPORT ---
CT CT HEAD INDICATION: fall hit head, used heroin this morning EXAM DATE: 02/07/2025 12:36 PM COMPARISON: None RADIATION DOSE: CTDIvol: 64 mGy, DLP: 1123 mGy*cm PROCEDURE: CT scans of the head were obtained from the vertex to the skull base. Sagittal and coronal reconstructions were provided. All CT scans at this medical facility are performed using dose modulation techniques as appropriate to a performed exam including the following: Automated exposure control was utilized; adjustment of the MA and/or KV according to patient size; and use of iterative reconstruction technique. FINDINGS: There is sulcal and ventricular prominence. The brainshows normal morphology and nelson-white matter differentiation, without intracranial hemorrhage, extra-axial fluid collection, mass effect or acute large vessel infarct. The ventricles are normal in size. The basal cisterns are patent. The skull and visible facial bones are intact. The paranasal sinuses, mastoid air cells and middle ear cavities are well-aerated. The soft tissues of the scalp are unremarkable. IMPRESSION: No acute intracranial abnormality.
[2025-02-07 13:11] VITALS: BP 118/70; PULSE 84; RESP 14; O2SAT 97
== END 2025-02-07 14:30 | disposition home or self-care (01) ==
LOC: ER 11:50
DX: G40.909 Epilepsy, unspecified, not intractable, without status epilepticus (principal); G89.29 Other chronic pain; I10 Essential (primary) hypertension; F11.10 Opioid abuse, uncomplicated; F12.90 Cannabis use, unspecified, uncomplicated; F15.90 Other stimulant use, unspecified, uncomplicated; Z90.49 Acquired absence of other specified parts of digestive tract; Z90.710 Acquired absence of both cervix and uterus; Z88.1 Allergy status to other antibiotic agents; Z88.5 Allergy status to narcotic agent; Z88.8 Allergy status to other drugs, medicaments and biological substances; Z79.899 Other long term (current) drug therapy; Z56.0 Unemployment, unspecified; Z91.148 Patient's other noncompliance with medication regimen for other reason
CPT/HCPCS: 36415; 70450; 80048; 85025; 99284